=== PATIENT | female | born 1950 | race Caucasian/White ===

== ENCOUNTER → 2018-03-14 00:55 | Outpatient (CLI) | payer MEDICARE, BC, SELFPAY ==
--- NOTE | 2018-03-14 09:39 | DI.REPORT_ITS ---
SYMPTOM/DIAGNOSIS: F/U LEFT THYROID NODULE E04.1 THYROID ULTRASOUND: 03/14 Thyroid ultrasound was performed according to the usual protocol. The right thyroid lobe measures 50 x 13 x 14 mm. The left thyroid lobe measures 39 x 12 x 16 mm The previously noted 11 x 6 x 10 mm in diameter nodule of the left thyroid lobe measured 11 x 6 x 10 mm on the previous examination and measures 14 x 5 x 11 mm on today's examination and is otherwise unchanged in appearance with some internal vascular flow. CONCLUSION: Slight interval growth in solid left thyroid lobe inferior pole mass in comparison with examination of 07/12/17.
== END ==
LOC: DI 01-25 10:23
PROVIDERS: PCP Physician Assistant Medical; Visit Provider Otolaryngology
DX: E04.1 Nontoxic single thyroid nodule (principal)
CPT/HCPCS: 76536

== ENCOUNTER 2018-06-05 10:18 | Outpatient (REF) | payer MEDICARE, BC, SELFPAY ==
[2018-06-05 21:12] LABS: Cholesterol 225 mg/dL (50-200); Glucose 86 mg/dL (70-100); HDL Cholesterol 67 mg/dL (40-60); LDL CHOLESTEROL 152 mg/dL (<100); TSH 1.85 uIU/mL (0.358-3.74); Triglyceride 67 mg/dL (30-150)
== END 2018-06-05 10:38 ==
LOC: NCHCN 10:18
PROVIDERS: PCP Physician Assistant Medical; Visit Provider Nurse Practitioner Family
DX: E04.1 Nontoxic single thyroid nodule (principal); E78.89 Other lipoprotein metabolism disorders; R43.9 Unspecified disturbances of smell and taste
CPT/HCPCS: 80061; 82947; 83721; 84443

== ENCOUNTER 2018-09-23 07:39 | Day surgery (SDC) | payer MEDICARE, BC, SELFPAY ==
--- NOTE | 2018-09-22 19:29 | POEE_ITS ---
History of Present Illness Chief Complaint: Progressive decreased vision, left eye Narrative: The patient is a 68-year old lady with history of progressive decreased vision in both eyes at both distance and near. She notes significant difficulty with driving at night due to glare from headlights, left eye worse t hernandes right. On examination she was noted to have significant bilateral cortical cataracts with milder nuclear cataracts with corrected visual acuity of 20/30 OD and 20/40 OS. She has significant glare disability. The option of cataract surgery was offered to the patient and she wished to proceed. NOTE: The Chief Complaint, HPI, Past Medical History, Past Surgical History, Family History, Social History, Medications, and complete Ophthalmic Exam with detailed Assessment and Plan have already been documented in the patient's outpatient ophthalmic record and are not covered again in detail here. [facility] Medical History Cortical cataract of left eye (Acute) Nuclear sclerotic cataract of left eye (Acute) Posterior subcapsular age-related cataract of left eye (Acute) Social History Smoking and Tabacco status: Never Meds Home Medications Medication Instructions Recorded Confirmed Type epinephrine [EpiPen 2-Douglas] 0.3 mg IM ONCE 09/17/18 09/17/18 History Allergies Allergy/AdvReac Type Severity Reaction Status Date / Time sunflower seed Allergy Severe Swelling/Edema, Verified 09/17/18 12:52 rash latex AdvReac Intermediate Irritation Verified 09/17/18 12:51 scopolamine AdvReac Mild Nausea, Verified 09/17/18 12:51 dizzieness, migraine Sulfa (Sulfonamide AdvReac Mild Skin Rash Verified 09/17/18 12:51 Antibiotics) Exam OCULAR EXAM:: Most recent ocular examination is significant for corrected visual acuity of 20/30 OD, 20/40 OS. Ocular pressure is 14 OD, 16 OS. Extraocular motility is normal. Pupils equal, round, and reactive without afferent pupillary defect pupils dilating to 7 mm OU. 1+ nuclear cataract with 1-2+ diffuse cortical haze OU. 1+ posterior subcapsular cataract is present OS as well. Dilated funduscopic examination shows disc cupping of 0.3 OD 0.4 OS with good color. The optic nerves have good perfusion and normal color. The retinal vasculature is normal without significant tortuosity or abnormality. The maculas are normal in appearance with normal contour and foveal reflex appropriate for age. The peripheral retina and vitreous are normal. BRIGHTNESS ACUITY TESTING (BAT):: Brightness acuity testing of the left eye off is 20/40. Low is 20/50. Medium is 20/60. High is 20/80. Assessment and Plan (1) Posterior subcapsular age-related cataract of left eye: Current visit: No Status: Acute Assessment: Visually significant cataract, left eye. Plan: Cataract extraction with intraocular lens implantation, left eye (2) Nuclear sclerotic cataract of left eye: Current visit: No Status: Acute Assessment: Visually significant cataract, left eye. Plan: Cataract extraction with intraocular lens implantation, left eye (3) Cortical cataract of left eye: Current visit: No Status: Acute Assessment: Visually significant cataract, left eye. Plan: Cataract extraction with intraocular lens implantation, left eye Note: NOTE:: The details of the planned surgery, including the risks, indications,limitations,expectations,outcome and possible complications were explained to the patient. The patient understands the complications including, but not limited to: infection, hemorrhage, posterior dislocation of the lens or nuclear fragments which may require the intervention of a vitreoretinal surgeon, possible loss of the eye, or from anesthetic complications. The patient has been made aware of the option of not having surgery, that vision following surgery may not be equal to that prior to surgery, and that the planned surgery may not achieve the intended results. Following this discussion, which the patient appeared to understand, the patient wishes to proceed with cataract surgery with lens implantation of the affected eye to improve and maximize vision.
[2018-09-23 07:54] VITALS: BP 174/91; PULSE 107; RESP 18; TEMP 36.5; O2SAT 97
[2018-09-23] MEDS: Tropicam./Phenyleph. (1/2.5%) 5 ML BTL OS ×3 (08:03→08:16)
[2018-09-23] MEDS: Tetracaine 0.5% 4 ML BTL OS ×4 (08:03→09:08)
--- NOTE | 2018-09-23 08:58 | W.PM.DSUDISC ---
Discharge Plan Disposition Patient Disposition: HOME Condition: Good Discharge Details Attending Provider: Natalio Mckinnon Primary Care Provider: Radha Mejia Home Meds and New Rx's Prescriptions: No Action epinephrine [EpiPen 2-Douglas] 0.3 mg/0.3 mL Auto-Injector 0.3 mg IM ONCE RF: 0 Discharge Instructions Stand Alone Forms: Post-op Topical Cataract, Reebka Rome (DSU) Discharge Orders Discharge Orders: Discharge Order (Routine); Ordered 09/23/18 Ordered By: Natalio Mckinnon DS: Diagnosis Discharge Diagnosis (1) Status post cataract extraction and insertion of intraocular lens of left eye: Status: Chronic
[2018-09-23] MEDS: Povidone-Iodine Ophth 30 ML BTL ×2 (09:08→09:31)
[2018-09-23] MEDS: Lidocaine 2% Jelly 6 ML SYR (09:08)
[2018-09-23] MEDS: Lidocaine 1% Pres-Free 5 ML VIAL (09:12)
[2018-09-23] MEDS: Balanced Salt Soln.-PLUS 500 ML BAG (09:12)
--- NOTE | 2018-09-23 09:41 | ROE_ITS ---
Date of service: 09/23/18 Time of Service: 09:40 Operative Note PRE-OP DIAGNOSIS: Cataract, left eye POST-OP DIAGNOSIS: same PROCEDURE: Cataract extraction using phacoemulsification with intraocular lens implant, left eye SURGEON: Natalio Mckinnon ANESTHESIA: MAC and local (sub-tenon's anesthetic infiltration) PATHOLOGY: none sent COMPLICATIONS: None Patient was transported to: same day Patient's condition: stable Implants: [employer] / [employer] Tecnis [id number] Indications: Progressive decreased vision due to cataract, left eye Procedure Description: CATARACT SURGERY OPERATIVE REPORT PREOPERATIVE DIAGNOSIS: Nuclear/cortical/posterior subcapsular cataract, left eye, symptom POSTOPERATIVE DIAGNOSIS: Same OPERATION: Cataract extraction using phacoemulsification with posterior chamber intraocular lens implant, left eye. IOL: IOL Grades 1 Thru 6 Home Teacher/Model: [employer] / KARSTEN Tecnis [id number] IOL Power: + 14.50 diopters IOL Serial Number: [id number] Optic Diameter: 6.0mm Haptic/Overall Diameter: 13.0mm PHACO INFO: [employer] Vision System with OZil and Active Fluidics Cumulative Dispersed Energy (CDE): 9.64 seconds SURGEON: Natalio Mckinnon MD, NANCY ANESTHESIA: Monitored Anesthesia Care (MAC), with local sub-tenon's anesthetic infiltration COMPLICATIONS: None SPECIMENS: None INDICATIONS FOR PROCEDURE: The patient is a 68-year-old lady with history of corneal epithelial basement membrane dystrophy who has developed nuclear cortical and posterior subcapsular cataract in the left eye with best corrected vision of 20/40. She is significantly symptomatic that she desires cataract surgery and attempt to improve and maximize her vision. PROCEDURE: The correct surgical eye was identified and marked as the left eye and the pupil was dilated in the preoperative area using mydriatics and cycloplegics. The dilated pupil size was 6.5 mm. Oral sedation was administered in the form of an Imprimis MKO Melt (midazolam 3mg/ketamine 25mg/ondansetron 2mg). The patient was brought to the operating room where cardiopulmonary monitoring was instituted and surgical time-out was performed, confirming the correct operative eye and IOL power. Topical anesthesia was administered and ophthalmic povidone-iodine 5% was instilled into the conjunctival fornices. Lidocaine gel was applied to the cornea and the mer-ocular area was prepped with Betadine 10% solution and draped in the usual sterile fashion for intraocular surgery, including an aperture drape. A Tegaderm transparent film dressing was cut in half and used to cover the lashes and lid margins. Care was taken to sequester the lashes and lid margins under the Tegaderm dressing. A lid speculum was placed between the lids of the operative eye and the Jesus Manuel-Mis operating microscope was maneuvered into position. Irene scissors were then used to make a conjunctival buttonhole approximately 6mm posterior to the limbus in the inferonasal quadrant. Blunt dissection was carried out to expose bare sclera, and a blunt-tipped sub-tenon?s anesthesia cannula was introduced and passed posteriorly along the globe where non- preserved plain lidocaine was injected into posterior sub-Tenon?s space. A sideport knife was used to make a paracentesis port superior/superiortemporal, and the anterior chamber was filled with Healon GV. A 2.4mm keratome knife was used to create a half-thickness groove at the limbus and then to construct a three-plane near-clear corneal tunnel extending 2.0mm into clear cornea in the temporal position. . A flap was raised on the anterior capsule and capsulorhexis forceps were used to complete a continuous curvilinear capsulorhexis of 5.0 mm. Balanced salt solution was then used to perform cortical cleaving hydrodissection and nuclear hydrodelineation until the lens could be freely rotated within the capsular bag. The lens nucleus was then disassembled and removed within the capsular bag and iris plane using phacoemulsification. Residual cortical material was removed using the 45-degree angled silicone I/A tip with 0.3mm port. The posterior capsule was carefully polished to remove as much residual lens epithelial cells as safely possible. The capsular bag was then inflated and the anterior chamber deepened with viscoelastic. The lens implant described above was inserted into the capsular bag using the KARSTEN [place] Injector. A Kuglen hook was used to dial the IOL into position. Residual viscoelastic was then removed first from posterior to the IOL, then from the anterior chamber using the I/A handpiece. The lens implant was noted to center nicely within the capsular bag. The incisions were stromally hydrated, and the anterior chamber was reformed using BSS. Then 0.4cc of moxifloxacin 1.5mg/ml were injected into the capsular bag and anterior chamber. The incisions were checked with a Weck spear and found to be secure. Several drops of ophthalmic povidone-iodine 5% were then applied to the eye followed by two drops of Imprimis combination moxifloxacin/dexamethasone solution. The drapes were removed and a clear plastic protective eye shield was placed over the eye. The patient was then returned to [facility] Day Surgery in stable condition.
[2018-09-23 10:22] VITALS: BP 105/71; PULSE 71; RESP 14; TEMP 35.7; O2SAT 95
== END 2018-09-23 10:45 | disposition home or self-care (01) ==
PROVIDERS: PCP Nurse Practitioner Family; Visit Provider Ophthalmology
PROC: (CPT 66984; principal; 2018-09-23 10:00)
DX: H25.812 Combined forms of age-related cataract, left eye (principal)
CPT/HCPCS: 66984; V2632

== ENCOUNTER 2018-10-07 08:29 | Day surgery (SDC) | payer MEDICARE, BC, SELFPAY ==
--- NOTE | 2018-10-06 18:49 | W.PIPPEYE ---
History of Present Illness Chief Complaint: Progressive decreased vision, right eye Narrative: The patient is a 68-year-old lady with history of progressive decreased vision in both eyes at both distance and near. She has significant difficulty like seeing beltran tags in stores and driving at night. She feels it is affecting her entire life. On examination she was noted to have bilateral nuclear and diffuse cortical cataract with posterior subcapsular cataract of the left eye as well. She underwent cataract surgery in the left eye on 09/23/2018. Postoperatively she has regained best corrected vision of 20/25 in the left eye. She now presents for cataract surgery in the right eye. NOTE: The Chief Complaint, HPI, Past Medical History, Past Surgical History, Family History, Social History, Medications, and complete Ophthalmic Exam with detailed Assessment and Plan have already been documented in the patient's outpatient ophthalmic record and are not covered again in detail here. [facility] Medical History Cortical cataract of right eye (Acute) Nuclear sclerotic cataract of right eye (Acute) Corneal epithelial dystrophy (Chronic) Cortical cataract of left eye (Resolved) Nuclear sclerotic cataract of left eye (Resolved) Posterior subcapsular age-related cataract of left eye (Resolved) Surgical History Status post cataract extraction and insertion of intraocular lens of left eye (Chronic 09/23/18) Social History Smoking/Tobacco Use Status: Never Drug use: Never Meds Home Medications Medication Instructions Recorded Confirmed Type epinephrine [EpiPen 2-Douglas] 0.3 mg IM ONCE 09/17/18 09/17/18 History Allergies Allergy/AdvReac Type Severity Reaction Status Date / Time sunflower seed Allergy Severe Swelling/Edema, Verified 09/23/18 07:50 rash latex AdvReac Intermediate Irritation Verified 09/23/18 07:50 scopolamine AdvReac Mild Nausea, Verified 09/23/18 07:50 dizzieness, migraine Sulfa (Sulfonamide AdvReac Mild Skin Rash Verified 09/23/18 07:50 Antibiotics) Exam OCULAR EXAM:: Most recent ocular examination is significant for best corrected vision of 20/30 right eye, 20/25 left eye. Intraocular pressure is 14 OD, 16 OS. Extraocular motility is normal. Slit-lamp examination is significant for anterior basement membrane dystrophy OU. Pupils dilate to 7 mm OU. 1+ nuclear with 1-2+ diffuse cortical cataract OD. In the left eye there is a well-positioned PCIOL with clear capsule. Dilated funduscopic examination reveals disc cupping of 0.3 OD 0.4 OS with good color. The optic nerves have good perfusion and normal color. The retinal vasculature is normal without significant tortuosity or abnormality. The maculas are normal in appearance with normal contour and foveal reflex appropriate for age. The peripheral retina and vitreous are normal. BRIGHTNESS ACUITY TESTING (BAT):: Brightness acuity testing of the right eye off is 20/30. Low, medium, and high is 20/30. Assessment and Plan (1) Nuclear sclerotic cataract of right eye: Current visit: No Status: Acute Assessment: Visually significant cataract, right eye. Plan: Cataract extraction with intraocular lens implantation, right eye (2) Cortical cataract of right eye: Current visit: No Status: Acute Assessment: Visually significant cataract, right eye. Plan: Cataract extraction with intraocular lens implantation, right eye Note: NOTE:: The details of the planned surgery, including the risks, indications,limitations,expectations,outcome and possible complications were explained to the patient. The patient understands the complications including, but not limited to: infection, hemorrhage, posterior dislocation of the lens or nuclear fragments which may require the intervention of a vitreoretinal surgeon, possible loss of the eye, or from anesthetic complications. The patient has been made aware of the option of not having surgery, that vision following surgery may not be equal to that prior to surgery, and that the planned surgery may not achieve the intended results. Following this discussion, which the patient appeared to understand, the patient wishes to proceed with cataract surgery with lens implantation of the affected eye to improve and maximize vision.
--- NOTE | 2018-10-06 18:53 | POEE_ITS ---
History of Present Illness Chief Complaint: Progressive decreased vision, right eye Narrative: The patient is a 68-year-old lady with history of progressive decreased vision in both eyes at both distance and near. She has significant difficulty like seeing beltran tags in stores and driving at night. She feels it is affecting her entire life. On examination she was noted to have bilateral nuclear and diffuse cortical cataract with posterior subcapsular cataract of the left eye as well. She underwent cataract surgery in the left eye on 09/23/2018. Postoperatively she has regained best corrected vision of 20/25 in the left eye. She now presents for cataract surgery in the right eye. NOTE: The Chief Complaint, HPI, Past Medical History, Past Surgical History, Family History, Social History, Medications, and complete Ophthalmic Exam with detailed Assessment and Plan have already been documented in the patient's outpatient ophthalmic record and are not covered again in detail here. [facility] Medical History Cortical cataract of right eye (Acute) Nuclear sclerotic cataract of right eye (Acute) Corneal epithelial dystrophy (Chronic) Cortical cataract of left eye (Resolved) Nuclear sclerotic cataract of left eye (Resolved) Posterior subcapsular age-related cataract of left eye (Resolved) Surgical History Status post cataract extraction and insertion of intraocular lens of left eye (Chronic 09/23/18) Social History Smoking/Tobacco Use Status: Never Drug use: Never Meds Home Medications Medication Instructions Recorded Confirmed Type epinephrine [EpiPen 2-Douglas] 0.3 mg IM ONCE 09/17/18 09/17/18 History Allergies Allergy/AdvReac Type Severity Reaction Status Date / Time sunflower seed Allergy Severe Swelling/Edema, Verified 09/23/18 07:50 rash latex AdvReac Intermediate Irritation Verified 09/23/18 07:50 scopolamine AdvReac Mild Nausea, Verified 09/23/18 07:50 dizzieness, migraine Sulfa (Sulfonamide AdvReac Mild Skin Rash Verified 09/23/18 07:50 Antibiotics) Exam OCULAR EXAM:: Most recent ocular examination is significant for best corrected vision of 20/30 right eye, 20/25 left eye. Intraocular pressure is 14 OD, 16 OS. Extraocular motility is normal. Slit-lamp examination is significant for anterior basement membrane dystrophy OU. Pupils dilate to 7 mm OU. 1+ nuclear with 1-2+ diffuse cortical cataract OD. In the left eye there is a well- positioned PCIOL with clear capsule. Dilated funduscopic examination reveals disc cupping of 0.3 OD 0.4 OS with good color. The optic nerves have good p erfusion and normal color. The retinal vasculature is normal without significant tortuosity or abnormality. The maculas are normal in appearance with normal contour and foveal reflex appropriate for age. The peripheral retina and vitreous are normal. BRIGHTNESS ACUITY TESTING (BAT):: Brightness acuity testing of the right eye off is 20/30. Low, medium, and high is 20/30. Assessment and Plan (1) Nuclear sclerotic cataract of right eye: Current visit: No Status: Acute Assessment: Visually significant cataract, right eye. Plan: Cataract extraction with intraocular lens implantation, right eye (2) Cortical cataract of right eye: Current visit: No Status: Acute Assessment: Visually significant cataract, right eye. Plan: Cataract extraction with intraocular lens implantation, right eye Note: NOTE:: The details of the planned surgery, including the risks, indications,limitations,expectations,outcome and possible complications were explained to the patient. The patient understands the complications including, but not limited to: infection, hemorrhage, posterior dislocation of the lens or nuclear fragments which may require the intervention of a vitreoretinal surgeon, possible loss of the eye, or from anesthetic complications. The patient has been made aware of the option of not having surgery, that vision following surgery may not be equal to that prior to surgery, and that the planned surgery may not achieve the intended results. Following this discussion, which the patient appeared to understand, the patient wishes to proceed with cataract surgery with lens implantation of the affected eye to improve and maximize vision.
--- NOTE | 2018-10-06 19:21 | W.PM.DSUDISC ---
Discharge Plan Disposition Patient Disposition: HOME Condition: Stable Discharge Details Attending Provider: Natalio Mckinnon Primary Care Provider: Radha Mejia Home Meds and New Rx's Prescriptions: No Action epinephrine [EpiPen 2-Douglas] 0.3 mg/0.3 mL Auto-Injector 0.3 mg IM ONCE RF: 0 Discharge Instructions Stand Alone Forms: Post-op Topical Cataract, Rebeka Hurtadoey (DSU) Discharge Orders Discharge Orders: Discharge Order (Routine); Ordered 10/07/18 Ordered By: Natalio Mckinnon DS: Diagnosis Discharge Diagnosis (1) Nuclear sclerotic cataract of right eye: Status: Resolved (2) Cortical cataract of right eye: Status: Resolved (3) Status post cataract extraction and insertion of intraocular lens of right eye: Status: Chronic
[2018-10-07 08:42] VITALS: BP 161/97; PULSE 81; RESP 18; TEMP 36.5; O2SAT 97
[2018-10-07] MEDS: Tropicam./Phenyleph. (1/2.5%) 5 ML BTL OD ×3 (08:56→09:05)
[2018-10-07] MEDS: Tetracaine 0.5% 4 ML BTL OD ×4 (08:56→10:29)
[2018-10-07] MEDS: Lidocaine 2% Jelly 6 ML SYR (10:29)
[2018-10-07] MEDS: Povidone-Iodine Ophth 30 ML BTL (10:29)
[2018-10-07] MEDS: Lidocaine 1% Pres-Free 5 ML VIAL (10:33)
[2018-10-07] MEDS: Balanced Salt Soln.-PLUS 500 ML BAG (10:35)
--- NOTE | 2018-10-07 11:02 | ROE_ITS ---
Date of service: 10/07/18 Time of Service: 11:00 Operative Note PRE-OP DIAGNOSIS: Cataract, right eye PROCEDURE: Cataract extraction using phacoemulsification with intraocular lens implant, right eye SURGEON: Natalio Mckinnon ANESTHESIA: MAC and local (sub-tenon's anesthetic infiltration) ESTIMATED BLOOD LOSS: 0 PATHOLOGY: none sent COMPLICATIONS: None Patient was transported to: same day Patient's condition: stable Implants: [employer] / [employer] Tecnis ZCB00 intraocular lens Indications: Progressive decreased vision due to cataract, right eye Procedure Description: CATARACT SURGERY OPERATIVE REPORT PREOPERATIVE DIAGNOSIS: Nuclear/cortical cataract, right eye POSTOPERATIVE DIAGNOSIS: Same OPERATION: Cataract extraction using phacoemulsification with posterior chamber intraocular lens implant, right eye. IOL: IOL Wind [employer] Technician/Model: [employer] / KARSTEN Tecnis ZCB00 IOL Power: + 17.50 diopters IOL Serial Number: [id number] Optic Diameter: 6.0mm Haptic/Overall Diameter: 13.0mm PHACO INFO: [employer] Vision System with OZil and Active Fluidics Cumulative Dispersed Energy (CDE): 7.9 seconds SURGEON: Natalio Mckinnon MD, NANCY ANESTHESIA: Monitored Anesthesia Care (MAC), with local sub-tenon's anesthetic infiltration COMPLICATIONS: None SPECIMENS: None INDICATIONS FOR PROCEDURE: The patient is a 68-year-old lady with history of anterior basement membrane corneal dystrophy. She has developed significant nuclear and cortical cataracts in both eyes and desires cataract surgery and attempt to improve and maximize her vision. She has already undergone cataract surgery in her left eye on 09/23/2018. She now presents for cataract surgery in the right eye per PROCEDURE: The correct surgical eye was identified and marked as the right eye and the pupil was dilated in the preoperative area using mydriatics and cycloplegics. The dilated pupil size was 7.0 mm. Oral sedation was administered in the form of an Imprimis MKO Melt (midazolam 3mg/ketamine 25mg/ondansetron 2mg). The patient was brought to the operating room where cardiopulmonary monitoring was instituted and surgical time-out was performed, confirming the correct operative eye and IOL power. Topical anesthesia was administered and ophthalmic povidone-iodine 5% was instilled into the conjunctival fornices. Lidocaine gel was applied to the cornea and the mer-ocular area was prepped with Betadine 10% solution and draped in the usual sterile fashion for intraocular surgery, including an aperture drape. A Tegaderm transparent film dressing was cut in half and used to cover the lashes and lid margins. Care was taken to sequester the lashes and lid margins under the Tegaderm dressing. A lid speculum was placed between the lids of the operative eye and the Jesus Manuel-Mis operating microscope was maneuvered into position. Irene scissors were then used to make a conjunctival buttonhole approximately 6mm posterior to the limbus in the inferonasal quadrant. Blunt dissection was carried out to expose bare sclera, and a blunt-tipped sub-tenon?s anesthesia cannula was introduced and passed posteriorly along the globe where non- preserved plain lidocaine was injected into posterior sub-Tenon?s space. A sideport knife was used to make a paracentesis port inferiortemporally, and the anterior chamber was filled with Healon GV. A 2.4mm keratome knife was used to create a half-thickness groove at the limbus and then to construct a three-plane near-clear corneal tunnel extending 2.0mm into clear cornea in the superiortemporal position. . A flap was raised on the anterior capsule and capsulorhexis forceps were used to complete a continuous curvilinear capsulorhexis of 5.0 mm. Balanced salt solution was then used to perform cortical cleaving hydrodissection and nuclear hydrodelineation until the lens could be freely rotated within the capsular bag. The lens nucleus was then disassembled and removed within the capsular bag and iris plane using phacoemulsification. Residual cortical material was removed using the I/A handpiece. The posterior capsule was carefully polished to remove as much residual lens epithelial cells as safely possible. The capsular bag was then inflated and the anterior chamber deepened with viscoelastic. The lens implant described above was inserted into the capsular bag using the KARSTEN [place] Injector. A Kuglen hook was used to dial the IOL into position. Residual viscoelastic was then removed first from posterior to the IOL, then from the anterior chamber using the I/A handpiece. The lens implant was noted to center nicely within the capsular bag. The incisions were stromally hydrated, and the anterior chamber was reformed using BSS. Then 0.4cc of moxifloxacin 1.5mg/ml were injected into the capsular bag and anterior chamber. The incisions were checked with a Weck spear and found to be secure. Several drops of ophthalmic povidone-iodine 5% were then applied to the eye followed by two drops of Imprimis combination moxifloxacin/dexamethasone solution. The drapes were removed and a clear plastic protective eye shield was placed over the eye. The patient was then returned to [facility] Day Surgery in stable condition.
[2018-10-07 11:22] VITALS: BP 124/82; PULSE 79; RESP 16; TEMP 36.8; O2SAT 94
[2018-10-07 11:37] VITALS: BP 124/82; PULSE 79; RESP 16; TEMP 36.8; O2SAT 94
== END 2018-10-07 11:35 | disposition home or self-care (01) ==
LOC: SUR 08:30
PROVIDERS: PCP Nurse Practitioner Family; Visit Provider Ophthalmology
PROC: (CPT 66984; principal; 2018-10-07 11:15)
DX: H25.811 Combined forms of age-related cataract, right eye (principal); Z98.42 Cataract extraction status, left eye; Z96.1 Presence of intraocular lens
CPT/HCPCS: 66984; V2632

== ENCOUNTER 2019-04-10 11:19 | Inpatient (IN) | payer MEDICARE, BC, SELFPAY ==
[2019-04-10 11:22] VITALS: BP 191/92; PULSE 86; RESP 16; TEMP 37.2; O2SAT 98
--- NOTE | 2019-04-10 11:47 | DI.CT_ITS ---
EXAM: CT RENAL COLIC WO CLINICAL HISTORY: Left flank pain. COMPARISON: No exams were available for comparison FINDINGS: CT examination of the abdomen and pelvis was performed without contrast administration. Images obtai kishor through the lung bases are unremarkable. Visualized portions of the liver and spleen are unremar kable. Pancreas appears normal. Gallbladder and bile ducts are CT normal. Abdominal aorta is of no rmal diameter. Small fat containing umbilical hernia noted, no other hernia seen. No abdominal or p elvic adenopathy. Cutlery Grinder structures appear unremarkable for age. Normal appearance of the appendix. N o evidence of diverticulitis. Adrenals are unremarkable in appearance bilaterally. There are multiple bilateral nonobstructing kunal al calculi. There is left hydronephrosis and hydroureter to the level of the distal ureter where the re is an obstructing 4 mm calculus a few cm above the UVJ. Urinary bladder unremarkable. IMPRESSION: 4 mm obstructing left ureteral calculus in the distal ureter as described above.
--- NOTE | 2019-04-10 11:48 | ED.GENADUL_ITS ---
Discharge Plan Disposition Patient Disposition: [facility] INPATIENT Condition: Stable Discharge Details Chief Complaint: FlankPain Clinical Impression: Calculus of left ureter Primary Care Provider: Radha Mejia ED Provider: Chavez Mccann Home Meds and New Rx's Prescriptions: No Action epinephrine [EpiPen 2-Douglas] 0.3 mg/0.3 mL Auto-Injector 0.3 mg IM ONCE RF: 0 Medical Decision Making 68-year-old female presents from home with hours of colicky left flank pain that radiates to the abdomen. Similar to previous renal colic. No fever. She did vomit once at home. She arrives with slight hypertension, afebrile, minimal tenderness in left upper quadrant. Differential diagnosis would include colitis, bowel obstruction, as well as recurrent left ureteral colic. Patient IV access established, referred for laboratory testing, urinalysis, given parenteral analgesic and referred for CT images. Patient does have evidence of urinary tract infection with positive white blood cells and leuk esterase. Minimal anion gap of 12, elevated white blood cell count of 12. CT with left 4 mm obstructing calculus. Given her urinary tract infection, case discussed with Dr. Lilly and patient will be admitted for parenteral antibiotics and observation. HPI General Mode of arrival: ambulatory . Date/Time Provider Initiated Documentation: 04/10/19 11:20 . Limitations to Documentation: no limitations . Information obtained by: patient . History of Present Illness 68 year old F presents to the emergency department with the chief complaint of Colicky left flank pain 4 hours, described as moderate, Quality is described as stabbing, and is localized to the abdomen and left. Patient abdomen and flank. Patient started experiencing this hour(s) and it has been intermittent. No relieving factors improve symptom(s), No exacerbating factors reported . Patient notes denies fever/chills. Patient did receive the following tr eatments prior to arrival, NSAID Related Data Home Medications Medication Instructions Recorded Confirmed epinephrine [EpiPen 2-Douglas] 0.3 mg IM ONCE 09/17/18 04/10/19 Allergies Allergy/AdvReac Type Severity Reaction Status Date / Time sunflower seed Allergy Severe Swelling/Edema, Verified 04/10/19 11:26 rash latex AdvReac Intermediate Irritation Verified 04/10/19 11:26 scopolamine AdvReac Mild Nausea, Verified 04/10/19 11:26 dizzieness, migraine Sulfa (Sulfonamide AdvReac Mild Skin Rash Verified 04/10/19 11:26 Antibiotics) General Stated Complaint: FlankPain SHIRLEY: 3 Review of Systems Review of Systems Narrative: No fever or chills. Vomited with pain once this morning. No recent illness or injury. No change to bowel habits. 6 systems reviewed and otherwise negative [facility] Medical History Corneal epithelial dystrophy (Chronic) Cortical cataract of left eye (Resolved) Cortical cataract of right eye (Resolved) Nuclear sclerotic cataract of left eye (Resolved) Nuclear sclerotic cataract of right eye (Resolved) Posterior subcapsular age-related cataract of left eye (Resolved) Surgical History Status post cataract extraction and insertion of intraocular lens of left eye (Chronic 09/23/18) Status post cataract extraction and insertion of intraocular lens of right eye (Chronic) Social History Smoking/Tobacco Use Status: Never Alcohol Intake: current Alcohol Intake frequency: holidays/special occasions only Drug use: Never Substance use type: does not use Do you feel safe at home: Yes Do you feel safe in your relationship?: Yes Exam Narrative Exam Narrative: GEN: awake, alert, oriented 3. Pleasant, well groomed, interactive. HEAD: Normocephalic, atraumatic ENT: Mucous membranes moist, oropharynx unremarkable, External ear exam unremarkable EYES: PERRL, EOMI NECK: Full ROM, no JADE, no menigismus CHEST/RESP: Nontender, clear to auscultation bilateral, no wheeze/rhonchi/rales CARDIOVASCULAR: RRR, no murmur, rub vito. 2+ Rad pulse bilateral ABDOMEN: Soft, minimal left lower quadrant tenderness without rebound, no mass. +Bowel sounds EXT: Full ROM, no edema, no rash Neuro: Grossly normal neurologic exam, conversant, interactive. Psych: Speech fluent, thoughts congruent, affect normal Course Vital Signs Vital signs: Vital Signs Temperature 37.2 C 04/10/19 11:22 Pulse 86 04/10/19 11:22 Respiratory Rate 16 04/10/19 11:22 Blood Pressure 191/92 H 04/10/19 11:22 Pulse Oximetry 98 04/10/19 11:22 Temperature 37.2 C 04/10/19 11:22 Temperature Source Skin 04/10/19 11:22 Pulse 86 04/10/19 11:22 Respiratory Rate 16 04/10/19 11:22 Respiratory Effort Non-Labored 04/10/19 11:25 Blood Pressure 191/92 H 04/10/19 11:22 Blood Pressure Position Sitting 04/10/19 11:22 Pulse Oximetry 98 04/10/19 11:22 Oxygen Delivery Method Room Air 04/10/19 11:22 Oxygen Flow Rate 0 04/10/19 11:22
[2019-04-10] MEDS: Ketorolac 30 MG/ML VIAL IVP (12:25)
[2019-04-10] MEDS: Normal Saline 1,000 ML 150 ML IV (12:30)
[2019-04-10 12:34] LABS: Abs Immature Grans 0.02 k/cumm (0.0-0.09); Absolute Basophil Count 0.02 k/cumm (0.0-0.2); Absolute Eosinophil Count 0.01 k/cumm (0.0-0.7); Absolute Lymphocyte Count 0.81 k/cumm (1.2-3.4); Absolute Monocyte Count 0.21 k/cumm (0.11-0.7); Basophils % 0.2; Eosinophils % 0.1; HCT 42.8 % (36.0-46.0); HGB 14.1 g/dL (12.0-15.5); Immature Grans % 0.2; Lymphocytes % 6.5; Mean Corp. HGB Concentration 32.9 g/dL (32.0-36.0); Mean Corpuscular Volume 87.9 fL (80-95); Mean Platelet Volume 10.6 fL (8.0-11.0); Monocytes % 1.7; Neutrophils % 91.3; Platelet Count 328 x1000/uL (130-400); RBC 4.87 m/cumm (4.00-5.20); RBC Distribution Width 13.8 % (11.7-14.6); White Blood Cell Count 12.39 k/cumm (4.4-10.8)
[2019-04-10 12:42] LABS: Absolute Neutrophil Count 11.31 k/cumm (1.2-6.7)
[2019-04-10 12:45] LABS: Bilirubin Negative (Negative); Blood Large (Negative); Clarity Sl Cloudy (Clear); Glucose Negative (Negative); Ketones 40 mg/dL (Negative); Leukocyte Esterase Trace (Negative); Nitrite Negative (Negative); Specific Gravity 1.025 (1.005-1.025); Urobilinogen 0.2 EU/dL (Up TO 0.2); pH 5.5 (5-8)
[2019-04-10 12:51] LABS: ALT 27 U/L (14-59); AST 30 U/L (15-37); Albumin 4.1 g/dL (3.4-5.0); Alkaline Phosphatase 70 U/L (46-116); Anion Gap 12.6 mmol/L (3-11); BUN 15 mg/dL (7-18); Bilirubin, Total 0.7 mg/dL (0.2-1.0); CO2 23.4 mmol/L (21.0-32.0); CREATININE 0.83 mg/dL (0.55-1.02); Calcium 9.5 mg/dL (8.5-10.1); Chloride 105 mmol/L (98-107); Glucose 101 mg/dL (70-100); Potassium 4.2 mmol/L (3.5-5.1); Sodium 141 mmol/L (136-145); Total Protein 8.1 g/dL (6.4-8.2)
[2019-04-10 13:02] LABS: Bacteria Many HPF (Negative); C & S Indicated? Yes; Casts Negative LPF (Negative); Crystals Negative HPF (Negative); Epithelial Cells Rare HPF (Negative); Mucus Moderate (Negative); RBC >50 (0-2)
[2019-04-10 14:25] VITALS: BP 151/74; PULSE 82; RESP 16; TEMP 37.1; O2SAT 97
[2019-04-10] MEDS: cefTRIAXone 1 GM/50 ML BAG IVPB (14:37)
[2019-04-10 14:47] VITALS: BP 151/74; PULSE 82; RESP 16; TEMP 37.1; O2SAT 97
[2019-04-10 15:13] VITALS: BP 134/78; PULSE 82; RESP 19; TEMP 36.9; O2SAT 97
[2019-04-10] MEDS: Normal Saline 1,000 ML 100 ML IV (15:30)
--- NOTE | 2019-04-10 15:47 | W.PM.HP.N ---
Date of service: 04/10/19 Time of Service: 15:47 Assessment and Plan Assessment and plan (1) Left ureteral stone: Status: Acute Assessment and plan: We will treat her with hydration and analgesia. The biggest thing we need to do, is to monitor her for signs or symptoms of sepsis. Urine culture is already been sent, so we will give her broad-spectrum antibiotics such as ceftriaxone. I have kept her n.p.o. after midnight until we see how she is doing clinically and how her labs look. If she is doing reasonably well, we could probably discharge her with oral antibiotics and analgesics. If we are concerned about sepsis at all, we will make arrangements for a cystoscopy, stent placement and possible ureteroscopy. We will strain the patient's urine in the hopes that we catch a stone fragment. That way we can have the stone analyzed and come up with a more directed recommendation to help prevent future stones. (2) Bilateral kidney stones: Status: Acute (3) UTI (urinary tract infection): Status: Acute History of Present Illness History of Present Illness Chief Complaint: Renal colic Narrative: This is a 68-year-old female who has had renal colic about 10 or 15 years ago. She recalls passing small crystals. She never had the stone analyzed for chemical composition. She has had left-sided flank and abdominal pain in the past 2 days. She has had nausea and vomiting. This prompted her to present to the emergency room. She has not had any fever or chills. She has no dysuria or gross hematuria. This episode of discomfort is different from her previous episode in that she now has some lower abdominal discomfort compared to b back pain alone. She was evaluated in the emergency room and was found to have bilateral nonobstructing kidney stones with a left distal ureteral stone causing some hydronephrosis. Her urine shows some white cells and bacteria. Her serum white blood count is slightly elevated and she has a bit of a left shift. She feels better after receiving hydration and analgesia in the emergency room. We are keeping her here in the hospital to monitor her and make sure that she does not require urgent intervention related to an infection related to her hydronephrosis. Review of Systems Review of Systems Narrative: No fevers or chills No vision change or dysphasia No diabetes or thyroid dysfunction No shortness of breath, cough or hemoptysis No chest pain or palpitations No hepatitis, ulcers, jaundice, diarrhea or constipation No seizures, strokes or peripheral neuropathy No bleeding disorders or anemia No gout PFSH Medical History Corneal epithelial dystrophy (Chronic) Cortical cataract of left eye (Resolved) Cortical cataract of right eye (Resolved) Nuclear sclerotic cataract of left eye (Resolved) Nuclear sclerotic cataract of right eye (Resolved) Posterior subcapsular age-related cataract of left eye (Resolved) Surgical History Status post cataract extraction and insertion of intraocular lens of left eye (Chronic 09/23/18) Status post cataract extraction and insertion of intraocular lens of right eye (Chronic) Social History Smoking/Tobacco Use Status: Never Alcohol Intake: current Alcohol Intake frequency: holidays/special occasions only Drug use: Never Substance use type: does not use Do you feel safe at home: Yes Do you feel safe in your relationship?: Yes Meds Home Medications and Allergies Home Medications Medication Instructions Recorded Confirmed Type epinephrine [EpiPen 2-Douglas] 0.3 mg IM ONCE 09/17/18 04/10/19 History Allergies Allergy/AdvReac Type Severity Reaction Status Date / Time sunflower seed Allergy Severe Swelling/Edema, Verified 04/10/19 11:26 rash latex AdvReac Intermediate Irritation Verified 04/10/19 11:26 scopolamine AdvReac Mild Nausea, Verified 04/10/19 11:26 dizzieness, migraine Sulfa (Sulfonamide AdvReac Mild Skin Rash Verified 04/10/19 11:26 Antibiotics) Exam Narrative Exam Narrative: She is in no current distress. She looks quite comfortable currently. She does not appear septic or toxic. Her vital signs are documented elsewhere. Her chest wall motion is normal. Her lungs are clear. Cardiac exam shows a regular rate and rhythm Her abdomen is soft with no peritoneal signs such as guarding or rebound tenderness. She is awake and alert. I reviewed her CT scan on the PACS system. She does have multiple bilateral stones. There is a left distal ureteral stone with some hydroureter and hydronephrosis above. Results Labs Result diagrams: 04/10/19 12:25 04/10/19 12:25 Labs: Laboratory Results - last 24 hr 04/10/19 04/10/19 04/10/19 12:00 12:25 12:25 WBC 12.39 H RBC 4.87 Hgb 14.1 Hct 42.8 MCV 87.9 MCH 29.0 MCHC 32.9 RDW 13.8 Plt Count 328 MPV 10.6 Immature Gran % 0.2 Neutrophils % 91.3 Lymphocytes % 6.5 Monocytes % 1.7 Eosinophils % 0.1 Basophils % 0.2 Absolute Neutrophils 11.31 H Absolute Lymphocytes 0.81 L Absolute Monocytes 0.21 Absolute Eosinophils 0.01 Absolute Basophils 0.02 Sodium 141 Potassium 4.2 Chloride 105 Carbon Dioxide 23.4 Anion Gap 12.6 H BUN 15 Creatinine 0.83 Estimated GFR/1.73 m2 >= 60.00 Glucose 101 H Calcium 9.5 Total Bilirubin 0.7 AST 30 ALT 27 Alkaline Phosphatase 70 Total Protein 8.1 Albumin 4.1 Urine Color Yellow Urine Clarity Sl cloudy Urine pH 5.5 Ur Specific [place] 1.025 Urine Protein 30 H Urine Ketones 40 H Urine Blood Large H Urine Nitrite Negative Urine Bilirubin Negative Urine Urobilinogen 0.2 Ur Leukocyte Esterase Trace H Urine RBC >50 H Urine WBC 10-20 Ur Epithelial Cells Rare Urine Crystals Negative Urine Bacteria Many Urine Casts Negative Urine Mucus Moderate Ur Culture Indicated? Yes Urine Glucose Negative Last Vital Signs Temp 37.1 C 04/10/19 14:47 Pulse 82 04/10/19 14:47 Resp 16 04/10/19 14:47 BP 151/74 H 04/10/19 14:47 Pulse Ox 97 04/10/19 14:47
[2019-04-10 17:08] VITALS: BP 149/87; PULSE 75; RESP 18; TEMP 37; O2SAT 95
[2019-04-10] MEDS: Docusate Sodium 100 MG CAP PO (19:15)
[2019-04-10 23:42] VITALS: BP 130/73; PULSE 78; RESP 18; TEMP 36.9; O2SAT 95
[2019-04-11] MEDS: Normal Saline 1,000 ML 100 ML IV (01:32)
[2019-04-11 07:11] LABS: Absolute Basophil Count 0.02 k/cumm (0.0-0.2); Absolute Eosinophil Count 0.23 k/cumm (0.0-0.7); Absolute Lymphocyte Count 1.74 k/cumm (1.2-3.4); Absolute Monocyte Count 0.42 k/cumm (0.11-0.7); Absolute Neutrophil Count 3.14 k/cumm (1.2-6.7); Basophils % 0.4; Eosinophils % 4.1; HCT 38.3 % (36.0-46.0); HGB 12.5 g/dL (12.0-15.5); Lymphocytes % 31.4; Mean Corp. HGB Concentration 32.6 g/dL (32.0-36.0); Mean Corpuscular Hemoglobin 29.2 pg (27.0-33.0); Mean Corpuscular Volume 89.5 fL (80-95); Mean Platelet Volume 10.4 fL (8.0-11.0); Monocytes % 7.6; Neutrophils % 56.5; Platelet Count 287 x1000/uL (130-400); RBC 4.28 m/cumm (4.00-5.20); RBC Distribution Width 13.9 % (11.7-14.6); White Blood Cell Count 5.55 k/cumm (4.4-10.8)
[2019-04-11 07:19] LABS: Anion Gap 6.3 mmol/L (3-11); BUN 16 mg/dL (7-18); CO2 25.7 mmol/L (21.0-32.0); Calcium 8.6 mg/dL (8.5-10.1); Chloride 111 mmol/L (98-107); Glucose 86 mg/dL (70-100); Potassium 4.1 mmol/L (3.5-5.1); Sodium 143 mmol/L (136-145)
[2019-04-11 07:20] VITALS: BP 143/80; PULSE 74; RESP 18; TEMP 37; O2SAT 97
[2019-04-11] MEDS: Docusate Sodium 100 MG CAP PO (08:01)
--- NOTE | 2019-04-11 08:35 | PGE_ITS ---
Date of Service Date of service: 04/11/19 Time of Service: 08:35 Assessment and Plan Assessment and plan (1) Left ureteral stone: Status: Acute Assessment and plan: She has done well overnight. I have given her the option of trying to pass her stone at home versus going ahead with ureteroscopy today. Given the size and location of the stone, it has over 50% chance of passing spontaneously in the next month. She is elected to try to pass the stone without surgery. I will discharge her with antibiotics and analgesics. We will set up a follow-up appointment for 1 month but I have asked her to call our office next week with a progress report. If her pain worsens or if she develops fevers or chills, she will call us immediately or present to the emergency room. Subjective Subjective Interval history since last seen: She has felt well overnight with only minimal left-sided pain. She has not had any fever or chills. She has not had any nausea. Exam Narrative Exam Narrative: She looks well. She does not appear septic or toxic. Her vital signs are documented elsewhere Her abdomen is soft with no mass She is awake and alert Her labs from this morning have returned to baseline. Objective Objective Clinical Data: Abnormal lab results 04/10/19 04/10/19 04/10/19 Range/Units 12:00 12:25 12:25 WBC 12.39 H (4.4-10.8) k/cumm Absolute Neutrophils 11.31 H (1.2-6.7) k/cumm Absolute Lymphocytes 0.81 L (1.2-3.4) k/cumm Chloride (98-107) mmol/L Anion Gap 12.6 H (3-11) mmol/L Glucose 101 H (70-100) mg/dL Urine Protein 30 H (Negative) mg/dL Urine Ketones 40 H (Negative) mg/dL Urine Blood Large H (Negative) Ur Leukocyte Esterase Trace H (Negative) Urine RBC >50 H (0-2) 04/11/19 Range/Units 06:58 WBC (4.4-10.8) k/cumm Absolute Neutrophils (1.2-6.7) k/cumm Absolute Lymphocytes (1.2-3.4) k/cumm Chloride 111 H (98-107) mmol/L Anion Gap (3-11) mmol/L Glucose (70-100) mg/dL Urine Protein (Negative) mg/dL Urine Ketones (Negative) mg/dL Urine Blood (Negative) Ur Leukocyte Esterase (Negative) Urine RBC (0-2) Vital Signs Temperature 37.0 C 04/11/19 07:20 Temperature Source Tympanic 04/11/19 07:20 Pulse 74 04/11/19 07:20 Pulse Rhythm Regular 04/11/19 03:50 Respiratory Rate 18 04/11/19 07:20 Respiratory Effort Non-Labored 04/11/19 03:50 Respiratory Depth Normal 04/11/19 03:50 Respiratory Pattern Normal 04/11/19 03:50 Blood Pressure 143/80 H 04/11/19 07:20 Blood Pressure Position Sitting 04/10/19 11:22 Pulse Oximetry 97 04/11/19 07:20 Oxygen Delivery Method Room Air 04/11/19 07:20 Oxygen Flow Rate 0 04/11/19 07:20 Pain Level 0 04/11/19 07:20 Comment 04/11/19 07:20 Intake & Output 04/10/19 04/10/19 04/11/19 11:59 23:59 11:59 Intake Total 1240 / 1240 1000 / 1000 Output Total 200 / 200 400 / 400 Balance 1040 / 1040 600 / 600 Weight 74.843 kg 75.6 kg Intake: IV 1000 / 1000 1000 / 1000 Oral 240 / 240 Output: Urine 200 / 200 400 / 400 Other: Urine Color Yellow Pale Yellow Urine Appearance Clear Comment Strained urine no visible stones. Voiding Methods Toilet Laboratory Results WBC 5.55 k/cumm (4.4-10.8) D 04/11/19 06:58 RBC 4.28 m/cumm (4.00-5.20) 04/11/19 06:58 Hgb 12.5 g/dL (12.0-15.5) 04/11/19 06:58 Hct 38.3 % (36.0-46.0) 04/11/19 06:58 MCV 89.5 fL (80-95) 04/11/19 06:58 MCH 29.2 pg (27.0-33.0) 04/11/19 06:58 MCHC 32.6 g/dL (32.0-36.0) 04/11/19 06:58 RDW 13.9 % (11.7-14.6) 04/11/19 06:58 Plt Count 287 x1000/uL (130-400) 04/11/19 06:58 MPV 10.4 fL (8.0-11.0) 04/11/19 06:58 Immature Gran % 0.0 04/11/19 06:58 Neutrophils % 56.5 04/11/19 06:58 Lymphocytes % 31.4 04/11/19 06:58 Monocytes % 7.6 04/11/19 06:58 Eosinophils % 4.1 04/11/19 06:58 Basophils % 0.4 04/11/19 06:58 Absolute Neutrophils 3.14 k/cumm (1.2-6.7) 04/11/19 06:58 Absolute Lymphocytes 1.74 k/cumm (1.2-3.4) 04/11/19 06:58 Absolute Monocytes 0.42 k/cumm (0.11-0.7) 04/11/19 06:58 Absolute Eosinophils 0.23 k/cumm (0.0-0.7) 04/11/19 06:58 Absolute Basophils 0.02 k/cumm (0.0-0.2) 04/11/19 06:58 Sodium 143 mmol/L (136-145) 04/11/19 06:58 Potassium 4.1 mmol/L (3.5-5.1) 04/11/19 06:58 Chloride 111 mmol/L (98-107) H 04/11/19 06:58 Carbon Dioxide 25.7 mmol/L (21.0-32.0) 04/11/19 06:58 Anion Gap 6.3 mmol/L (3-11) 04/11/19 06:58 BUN 16 mg/dL (7-18) 04/11/19 06:58 Creatinine 0.80 mg/dL (0.55-1.02) 04/11/19 06:58 Estimated GFR/1.73 m2 >= 60.00 (mL/min/1.73m2) 04/11/19 06:58 Glucose 86 mg/dL (70-100) 04/11/19 06:58 Calcium 8.6 mg/dL (8.5-10.1) 04/11/19 06:58 Total Bilirubin 0.7 mg/dL (0.2-1.0) 04/10/19 12:25 AST 30 U/L (15-37) 04/10/19 12:25 ALT 27 U/L (14-59) 04/10/19 12:25 Alkaline Phosphatase 70 U/L (46-116) 04/10/19 12:25 Total Protein 8.1 g/dL (6.4-8.2) 04/10/19 12:25 Albumin 4.1 g/dL (3.4-5.0) 04/10/19 12:25 Urine Color Yellow (Yellow) 04/10/19 12:00 Urine Clarity Sl cloudy (Clear) 04/10/19 12:00 Urine pH 5.5 (5-8) 04/10/19 12:00 Ur Specific [place] 1.025 (1.005-1.025) 04/10/19 12:00 Urine Protein 30 mg/dL (Negative) H 04/10/19 12:00 Urine Ketones 40 mg/dL (Negative) H 04/10/19 12:00 Urine Blood Large (Negative) H 04/10/19 12:00 Urine Nitrite Negative (Negative) 04/10/19 12:00 Urine Bilirubin Negative (Negative) 04/10/19 12:00 Urine Urobilinogen 0.2 EU/dL (Up TO 0.2) 04/10/19 12:00 Ur Leukocyte Esterase Trace (Negative) H 04/10/19 12:00 Urine RBC >50 (0-2) H 04/10/19 12:00 Urine WBC 10-20 HPF (0-5) 04/10/19 12:00 Ur Epithelial Cells Rare HPF (Negative) 04/10/19 12:00 Urine Crystals Negative HPF (Negative) 04/10/19 12:00 Urine Bacteria Many HPF (Negative) 04/10/19 12:00 Urine Casts Negative LPF (Negative) 04/10/19 12:00 Urine Mucus Moderate (Negative) 04/10/19 12:00 Ur Culture Indicated? Yes 04/10/19 12:00 Urine Glucose Negative mg/dL (Negative) 04/10/19 12:00
--- NOTE | 2019-04-11 08:38 | DSE_ITS ---
Date of service: 04/11/19 Time of Service: 08:38 DS: Diagnosis Discharge Diagnosis (1) Left ureteral stone: Status: Acute Discharge Plan Disposition Patient Disposition: HOME Condition: Stable Discharge Details Chief Complaint: FlankPain Clinical Impression: Calculus of left ureter Reason For Visit: URINARY TRACT INFECTION AND LEFT URETERAL CALCULUS Admit Date/Time: 04/10/19 13:34 Admit Provider: Torsten Lilly Attending Provider: Torsten Lilly Primary Care Provider: Radha Mejia ED Provider: Chavez Mccann Hospital Course Hospital Course: The patient was seen in the emergency room for left-sided flank and abdominal pain. She was identified as having a left distal ureteral stone that measured 4 mm. We were concerned because her urinalysis was consistent with a urinary tract infection. We elected to hospitalize her overnight for IV antibiotics and make sure that she did not develop signs or symptoms of sepsis. During the hospitalization, her pain improved. She was afebrile. She did not have any tachycardia or hypotension. Her serum white blood count returned to normal. We gave her the option of ureteroscopy during this hospitalization or discharge to try to pass her stone. She elected to try to pass the stone, so she is being discharged with antibiotics, analgesics and alpha blockers. Home Meds and New Rx's Prescriptions: New ketorolac 10 mg tablet 10 mg PO TID PRN (Reason: pain) 5 Days Qty: 15 RF: 0 ciprofloxacin HCl 250 mg tablet 250 mg PO BID Qty: 6 RF: 0 tamsulosin 0.4 mg capsule 0.4 mg PO DAILY Qty: 14 RF: 0 Continued epinephrine [EpiPen 2-Douglas] 0.3 mg/0.3 mL Auto-Injector 0.3 mg IM ONCE RF: 0 Discharge Instructions Additional Instructions: Follow-up appointment with me in approximately 4 weeks. Asked the patient to call my office next week with a progress report. She should call my office immediately or present to the emergency room if she develops fevers, chills or worsening pain Activity:: Activity as Tolerated Equipment/Supplies:: No Equipment Needed Diet:: As Tolerated Discharge Data Discharge Comment: pt should receive her dose of Ceftriaxone today be DS: Summary Status at Discharge Functional status at discharge: independent ambulation Overall status at discharge: patient is back to baseline Mental Status: mental status grossly normal Speech and Movement: speech and movement normal Mood: congruent mood Affect: normal affect Exam Psych Mental Status: mental status grossly normal Speech and Movement: speech and movement normal Mood: congruent mood Affect: normal affect DS: Data Vitals/I&O Vitals and I&O: Vital Signs Temperature 37.0 C 04/11/19 07:20 Temperature Source Tympanic 04/11/19 07:20 Pulse 74 04/11/19 07:20 Pulse Rhythm Regular 04/11/19 03:50 Respiratory Rate 18 04/11/19 07:20 Respiratory Effort Non-Labored 04/11/19 03:50 Respiratory Depth Normal 04/11/19 03:50 Respiratory Pattern Normal 04/11/19 03:50 Blood Pressure 143/80 H 04/11/19 07:20 Blood Pressure Position Sitting 04/10/19 11:22 Pulse Oximetry 97 04/11/19 07:20 Oxygen Delivery Method Room Air 04/11/19 07:20 Oxygen Flow Rate 0 04/11/19 07:20 Pain Level 0 04/11/19 07:20 Comment 04/11/19 07:20 Intake & Output 04/10/19 04/10/19 04/11/19 11:59 23:59 11:59 Intake Total 1240 / 1240 1000 / 1000 Output Total 200 / 200 400 / 400 Balance 1040 / 1040 600 / 600 Weight 74.843 kg 75.6 kg Intake: IV 1000 / 1000 1000 / 1000 Oral 240 / 240 Output: Urine 200 / 200 400 / 400 Other: Urine Color Yellow Pale Yellow Urine Appearance Clear Comment Strained urine no visible stones. Voiding Methods Toilet Data Completed and Pending Labs on day of discharge: Labs from last 24 hours 04/11/19 04/11/19 04/10/19 06:58 06:58 12:25 WBC 5.55 D 12.39 H RBC 4.28 4.87 Hgb 12.5 14.1 Hct 38.3 42.8 MCV 89.5 87.9 MCH 29.2 29.0 MCHC 32.6 32.9 RDW 13.9 13.8 Plt Count 287 328 MPV 10.4 10.6 Immature Gran % 0.0 0.2 Neutrophils % 56.5 91.3 Lymphocytes % 31.4 6.5 Monocytes % 7.6 1.7 Eosinophils % 4.1 0.1 Basophils % 0.4 0.2 Absolute Neutrophils 3.14 11.31 H Absolute Lymphocytes 1.74 0.81 L Absolute Monocytes 0.42 0.21 Absolute Eosinophils 0.23 0.01 Absolute Basophils 0.02 0.02 Sodium 143 Potassium 4.1 Chloride 111 H Carbon Dioxide 25.7 Anion Gap 6.3 BUN 16 Creatinine 0.80 Estimated GFR/1.73 m2 >= 60.00 Glucose 86 Calcium 8.6 Total Bilirubin AST ALT Alkaline Phosphatase Total Protein Albumin Urine Color Urine Clarity Urine pH Ur Specific [place] Urine Protein Urine Ketones Urine Blood Urine Nitrite Urine Bilirubin Urine Urobilinogen Ur Leukocyte Esterase Urine RBC Urine WBC Ur Epithelial Cells Urine Crystals Urine Bacteria Urine Casts Urine Mucus Ur Culture Indicated? Urine Glucose 04/10/19 04/10/19 12:25 12:00 WBC RBC Hgb Hct MCV MCH MCHC RDW Plt Count MPV Immature Gran % Neutrophils % Lymphocytes % Monocytes % Eosinophils % Basophils % Absolute Neutrophils Absolute Lymphocytes Absolute Monocytes Absolute Eosinophils Absolute Basophils Sodium 141 Potassium 4.2 Chloride 105 Carbon Dioxide 23.4 Anion Gap 12.6 H BUN 15 Creatinine 0.83 Estimated GFR/1.73 m2 >= 60.00 Glucose 101 H Calcium 9.5 Total Bilirubin 0.7 AST 30 ALT 27 Alkaline Phosphatase 70 Total Protein 8.1 Albumin 4.1 Urine Color Yellow Urine Clarity Sl cloudy Urine pH 5.5 Ur Specific [place] 1.025 Urine Protein 30 H Urine Ketones 40 H Urine Blood Large H Urine Nitrite Negative Urine Bilirubin Negative Urine Urobilinogen 0.2 Ur Leukocyte Esterase Trace H Urine RBC >50 H Urine WBC 10-20 Ur Epithelial Cells Rare Urine Crystals Negative Urine Bacteria Many Urine Casts Negative Urine Mucus Moderate Ur Culture Indicated? Yes Urine Glucose Negative 04/10/19 12:00 Urine - Reflex from Urine Culture - Pending Preliminary micro results at discharge 04/10/19 12:00 Urine Culture - Pending Urine - Reflex from [facility] Medical History Bilateral kidney stones (Acute) Corneal epithelial dystrophy (Chronic) Cortical cataract of left eye (Resolved) Cortical cataract of right eye (Resolved) Left ureteral stone (Acute) Nuclear sclerotic cataract of left eye (Resolved) Nuclear sclerotic cataract of right eye (Resolved) Posterior subcapsular age-related cataract of left eye (Resolved) Surgical History Status post cataract extraction and insertion of intraocular lens of left eye (Chronic 09/23/18) Status post cataract extraction and insertion of intraocular lens of right eye (Chronic) Social History Smoking/Tobacco Use Status: Never Alcohol Intake: current Alcohol Intake frequency: holidays/special occasions only Drug use: Never Substance use type: does not use Do you feel safe at home: Yes Do you feel safe in your relationship?: Yes
[2019-04-11] MEDS: cefTRIAXone 1 GM/50 ML BAG IVPB (14:07)
--- NOTE | 2019-04-11 14:48 | CHAPLAIN ---
Cyndy was walking around the room when I visited. She was friendly in greeting me and told me that she found out she doesn't need to have a procedure and so will be discharged later today, and was happy about that. I explained my role and offered support.
--- NOTE | 2019-04-11 18:28 | INITIAL_ITS ---
- If Service Date Differs Date of service: 04/11/19 Time of Service: 18:28 Care Management Initial Assess REASON FOR HOSPITALIZATION:: UTI, Left Ureteral Calculus PAST MEDICAL HISTORY/PAST SURGICAL HISTORY:: Medical History. Corneal epithelial dystrophy (Chronic). Cortical cataract of left eye (Resolved). Cortical cataract of right eye (Resolved). Nuclear sclerotic cataract of left eye (Resolved). Nuclear sclerotic cataract of right eye (Resolved). Posterior subcapsular age-related cataract of left eye (Resolved). Surgical History. Status post cataract extraction and insertion of intraocular lens of left eye (Chronic 09/23/18). Status post cataract extraction and insertion of intraocular lens of right eye (Chronic) PREVIOUS FUNCTIONAL STATUS/SOCIAL/FAMILY SUPPORTS:: Cyndy lives in [place] with her , Bart. 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 She is independent at baseline. CURRENT FUNCTIONAL STATUS:: Cyndy, who likes to be called Arely, was sitting up in her bed during conversation with ROCIO, with her by her side. They were both pleasant and engaged. Arely reported that she will be going home, per her provider, and she is agreeable to the plan. She reported that she was very happy with her care at [facility]. ADVANCE DIRECTIVES:: None on file. Has patient been provided with information about the portal?: Yes Did the patient sign up for the portal?: No CODE STATUS:: Full Code INSURANCE COVERAGE / FINANCIAL ISSUES:: MCR/ BCBS CURRENT HOME/COMMUNITY SERVICES/EQUIPMENT:: No current services or equipment. PRIMARY CARE PHYSICIAN:: Radha Mejia POTENTIAL DISCHARGE NEEDS:: Evaluations for further needs, follow up appointments PATIENT/FAMILY EDUCATION NEEDS:: Review of community based supports, discharge plan, discussion of self care needs including Ask Me Three ANTICIPATED BARRIERS TO DISCHARGE:: None identified at this time. TRANSPORTATION:: Arely's , Bart, will drive her home via private vehicle. PLAN:: Arely will return home with no additional services to try to pass her stone. She will be driven home via private car by her , Bart. Follow up with PCP.
--- NOTE | 2019-04-11 18:36 | PDOC.CMDIS ---
- If Service Date Differs Date of service: 04/11/19 Time of Service: 18:36 LACE Index Scoring Tool - Questions: Length of Stay (in days): 2 Acuity (Admit via E.D.?): Yes E.D. Visits: 1 - Answers: Total Score: 6 Risk of Readmission: Low Risk Care Management Discharge Reason for Hospitalization: UTI, Left Ureteral Calculus Discharge Plan: Arely will return home with no additional services to try to pass her stone. She will be driven home via private car by her , Bart. Follow up with PCP. Patient/Family Education Needs: Review discharge instructions regarding medication and activity levels. Discussion of self care needs including 'Ask Me Three'
== END 2019-04-11 16:45 | disposition home or self-care (01) | DRG 694 ==
LOC: ER 14:18 → MS 15:02
PROVIDERS: Admitting Provider Urology; Emergency Provider Emergency Medicine; PCP Nurse Practitioner Family; Visit Provider Urology
DX: N20.1 Calculus of ureter (principal); N39.0 Urinary tract infection, site not specified; B96.5 Pseudomonas (aeruginosa) (mallei) (pseudomallei) as the cause of diseases classified elsewhere; N20.0 Calculus of kidney
CPT/HCPCS: 36415; 80048; 80053; 87077; 96361; 96374; 99219; 99222; 99231; 99238; 99285; 74176; 81003; 81015; 85025; 87086; 87186; 99284; J0696; J1885

== ENCOUNTER 2019-04-15 22:03 | Emergency (ER) | payer MEDICARE, BC, SELFPAY ==
[2019-04-15 22:07] VITALS: BP 177/90; PULSE 110; RESP 28; TEMP 36.7; O2SAT 100
--- NOTE | 2019-04-15 22:21 | W.ED.GENAD ---
Discharge Plan Disposition Patient Disposition: HOME Condition: Good Discharge Details Chief Complaint: Abd Prob Clinical Impression: Renal colic on left side Primary Care Provider: Radha Mejia ED Provider: Jackson Brownlee [place] Meds and New Rx's Prescriptions: New Hydrocodone/Apap 5/325, 4 Tab [[place] 5/325, 4 Tabs/Btl] 1 tab PO TID PRN (Reason: Pain) Qty: 4 RF: 0 Continued ketorolac 10 mg tablet 10 mg PO TID PRN (Reason: pain) 5 Days Qty: 15 RF: 0 tamsulosin 0.4 mg capsule 0.4 mg PO DAILY Qty: 14 RF: 0 epinephrine [EpiPen 2-Douglas] 0.3 mg/0.3 mL Auto-Injector 0.3 mg IM ONCE RF: 0 Discharge Instructions Instructions: Renal Colic (ED) Additional Instructions: Use the strainer when you are urinating to know if you have passed the stone. Continue your Flomax. Use Toradol as previously prescribed. Use [place] if necessary for uncontrolled pain. Contact Dr. Lilyl tomorrow for follow-up. Return to ED if you develop fever, uncontrolled pain, uncontrolled vomiting. Referrals: Torsten Lilly MD [ [facility] STAFF PHYSICIAN] - Medical Decision Making Patient presenting with recurrent ureteral colic as well as bladder symptoms. She has no CVAT. She has no fever. She is very uncomfortable with resulting elevated vital signs. Her bladder does not feel distended on exam. Bladder scan suggest only about 50 mL's of urine in the bladder. She continues to complain of urgency and need to urinate. IV established and fluids, morphine, Zofran ordered. CBC and chemistry ordered. Will straight cath for urinalysis. Patient much more comfortable after medications. Her CBC shows a normal white count. BMP shows normal renal function. Urinalysis at this point in time is negative for any evidence of infection. Only about 50 cc was obtained on straight cath consistent with bladder scan. Suspect that her stone is most likely at the UVJ at this point giving her bladder spasms and discomfort. She is much better now. She only has Toradol at home for pain. I will give her a prepack of [place] to go home with in case of recurrent pain overnight. She will continue the Flomax. I will have her touch base with Dr. Lilly in the morning. Return to ED for uncontrolled pain, uncontrolled vomiting, fever. Medical Records Medical records reviewed: Yes I reviewed the patient's medical records. Lab Data Lab results reviewed: Yes I reviewed the patient's lab results. HPI General Mode of arrival: ambulatory. Date/Time Provider Initiated Documentation: 04/15/19 22:14. Limitations to Documentation: no limitations. Information obtained by: patient, RN notes reviewed and old records reviewed. HPI Narrative: Patient presents to the emergency department with suprapubic pain, burning, urgency. She was admitted last week for left ureteral stone. There was some concern of infection and she was placed on antibiotics. She was discharged and has finished the ciprofloxacin and for the most part has been doing okay. She has needed to take a couple of doses of the oral Toradol. She has had no further fevers at home. Tonight she developed left lower quadrant and suprapubic pain as described. She took Toradol without relief. She has had nausea but no vomiting. She presents back to ED for on controlled pain and discomfort. Related Data Home Medications Medication Instructions Recorded Confirmed epinephrine [EpiPen 2-Douglas] 0.3 mg IM ONCE 09/17/18 04/15/19 ketorolac 10 mg PO TID PRN 5 Days #15 tab 04/11/19 04/15/19 tamsulosin 0.4 mg PO DAILY #14 cap 04/11/19 04/15/19 HYDROcodone/APAP 5/325, 4 tab 1 tab PO TID PRN #4 tab 04/16/19 [[place] 5/325, 4 tabs/btl] Previous Rx's Medication Instructions Recorded ketorolac 10 mg PO TID PRN 5 Days #15 tab 04/11/19 tamsulosin 0.4 mg PO DAILY #14 cap 04/11/19 HYDROcodone/APAP 5/325, 4 tab 1 tab PO TID PRN #4 tab 04/16/19 [[place] 5/325, 4 tabs/btl] Allergies Allergy/AdvReac Type Severity Reaction Status Date / Time sunflower seed Allergy Severe Swelling/Edema, Verified 04/15/19 22:18 rash latex AdvReac Intermediate Irritation Verified 04/15/19 22:18 scopolamine AdvReac Mild Nausea, Verified 04/15/19 22:18 dizzieness, migraine Sulfa (Sulfonamide AdvReac Mild Skin Rash Verified 04/15/19 22:18 Antibiotics) General Stated Complaint: Abd Prob SHIRLEY: 2 Review of Systems Review of Systems Narrative: As documented in HPI otherwise negative as below. Const: no fever, chills, weakness Resp: no cough, SOB, pleuritic pain CV: no CP, diaphoresis, edema, syncope GI: abdominal pain and nausea; no vomiting, diarrhea Neuro: no headache, numbness, focal weakness, confusion [facility] Medical History Bilateral kidney stones (Acute) Corneal epithelial dystrophy (Chronic) Cortical cataract of left eye (Resolved) Cortical cataract of right eye (Resolved) Left ureteral stone (Acute) Nuclear sclerotic cataract of left eye (Resolved) Nuclear sclerotic cataract of right eye (Resolved) Posterior subcapsular age-related cataract of left eye (Resolved) Surgical History Status post cataract extraction and insertion of intraocular lens of left eye (Chronic 09/23/18) Status post cataract extraction and insertion of intraocular lens of right eye (Chronic) Social History Smoking/Tobacco Use Status: Never Alcohol Intake: current Alcohol Intake frequency: holidays/special occasions only Drug use: Never Substance use type: does not use Do you feel safe at home: Yes Do you feel safe in your relationship?: Yes Exam Narrative Exam Narrative: Vitals: Afebrile. Hypertensive, tachycardic, tachypnea with normal O2 saturation. Const: WDWN female in obvious discomfot. HEENT: NC/AT. Normal facial exam. Eyes: Normal conjunctiva and sclera. Neck: Supple. Trachea midline. Lungs: Normal respiratory effort. Lungs are clear. Cor: RRR without murmur/gallop. Good radial pulses. GI: Soft. NT/ND. No guarding or rebound. Back: No CVAT. Neuro: A+O x 3. CN grossly in tact. Good strength and no focal deficit. Ext: No C/C/E. Skin: Warm and dry without rash. Course Vital Signs Vital signs: Vital Signs Temperature 98.1 F 04/15/19 22:07 Pulse 110 H 04/15/19 22:07 Respiratory Rate 28 H 04/15/19 22:07 Blood Pressure 177/90 H 04/15/19 22:07 Pulse Oximetry 100 04/15/19 22:07 Temperature 98.1 F 04/15/19 22:07 Temperature Source Skin 04/15/19 22:07 Pulse 110 H 04/15/19 22:07 Respiratory Rate 28 H 04/15/19 22:07 Respiratory Effort Non-Labored 04/15/19 22:17 Blood Pressure 177/90 H 04/15/19 22:07 Blood Pressure Position Sitting 04/15/19 22:07 Pulse Oximetry 100 04/15/19 22:07 Oxygen Delivery Method Room Air 04/15/19 22:07 Oxygen Flow Rate 0 04/15/19 22:07 Pain Level 9 04/15/19 22:07
[2019-04-15] MEDS: Ondansetron 4 MG/2 ML VIAL IVP (22:30)
[2019-04-15] MEDS: MORPHine 10 MG/ML VIAL (22:31)
[2019-04-15] MEDS: Lactated Ringers 1,000 ML 125 ML IV (22:31)
[2019-04-15] MEDS: Lidocaine 2% Jelly 6 ML SYR (22:45)
[2019-04-15 22:59] LABS: Abs Immature Grans 0.01 k/cumm (0.0-0.09); Absolute Basophil Count 0.04 k/cumm (0.0-0.2); Absolute Eosinophil Count 0.39 k/cumm (0.0-0.7); Absolute Lymphocyte Count 1.23 k/cumm (1.2-3.4); Absolute Monocyte Count 0.52 k/cumm (0.11-0.7); Absolute Neutrophil Count 6.37 k/cumm (1.2-6.7); Basophils % 0.5; Eosinophils % 4.6; HCT 39.1 % (36.0-46.0); HGB 13.1 g/dL (12.0-15.5); Immature Grans % 0.1; Lymphocytes % 14.4; Mean Corp. HGB Concentration 33.5 g/dL (32.0-36.0); Mean Corpuscular Hemoglobin 29.6 pg (27.0-33.0); Mean Corpuscular Volume 88.3 fL (80-95); Mean Platelet Volume 10.5 fL (8.0-11.0); Monocytes % 6.1; Neutrophils % 74.3; Platelet Count 297 x1000/uL (130-400); RBC 4.43 m/cumm (4.00-5.20); RBC Distribution Width 13.7 % (11.7-14.6); White Blood Cell Count 8.56 k/cumm (4.4-10.8)
[2019-04-15 23:12] LABS: Anion Gap 10.4 mmol/L (3-11); BUN 18 mg/dL (7-18); CO2 24.6 mmol/L (21.0-32.0); CREATININE 0.95 mg/dL (0.55-1.02); Calcium 9.3 mg/dL (8.5-10.1); Chloride 105 mmol/L (98-107); Estimated GFR 58.68 (mL/min/1.73m2); Glucose 114 mg/dL (70-100); Potassium 4.2 mmol/L (3.5-5.1); Sodium 140 mmol/L (136-145)
[2019-04-15 23:13] LABS: Bilirubin Negative (Negative); Blood Moderate (Negative); Clarity Clear (Clear); Glucose Negative (Negative); Ketones Negative (Negative); Leukocyte Esterase Negative (Negative); Nitrite Negative (Negative); Urobilinogen 0.2 EU/dL (Up TO 0.2); pH 5.5 (5-8)
[2019-04-15 23:20] LABS: Bacteria Negative HPF (Negative); C & S Indicated? No; Casts Negative LPF (Negative); Crystals Few Uric Acid HPF (Negative); Epithelial Cells Negative HPF (Negative); Mucus Negative (Negative); RBC 0-2 (0-2); WBC 0-2 HPF (0-5)
[2019-04-15 23:31] VITALS: BP 105/54; PULSE 89; RESP 18; O2SAT 94
[2019-04-16 00:35] VITALS: BP 140/95; PULSE 74; RESP 18; TEMP 36.8; O2SAT 96
== END 2019-04-16 00:35 | disposition home or self-care (01) ==
PROVIDERS: Emergency Provider Emergency Medicine; PCP Nurse Practitioner Family
DX: N23 Unspecified renal colic (principal); Z87.440 Personal history of urinary (tract) infections
CPT/HCPCS: 36415; 51701; 80048; 96361; 96374; 96375; 99284; 81003; 81015; 85025; J2270; J2405

== ENCOUNTER → 2019-05-05 09:32 | Outpatient (BNVA) | payer MEDICARE, BC, SELFPAY | PROVIDERS: PCP Nurse Practitioner Family; Referring Provider Nurse Practitioner Family; Visit Provider Urology | DX: N20.1 Calculus of ureter (principal) | CPT/HCPCS: 99213 ==

== ENCOUNTER 2019-05-07 01:41 | Outpatient (CLI) | payer MEDICARE, BC, SELFPAY ==
--- NOTE | 2019-05-07 12:12 | DI.US_ITS ---
EXAM: US RENAL CLINICAL HISTORY: r/o hydronephrosis N20.1 CALCULUS OF URETER TECHNIQUE: Ultrasound performed using standard protocol. COMPARISON: CT RENAL COLIC WO from 04/10/2019 FINDINGS: The right kidney measures 10.3 cm in length. No hydronephrosis is seen. There is a question of a s tone at the upper pole which appears nonobstructing. This was noted on the previous CT. The left ki dney measures 9.8 cm in length. A 3 x 6 millimeter stone is seen in the mid left kidney. No hydrone phrosis is seen. The prevoid bladder volume measured 251 cc. The postvoid residual is 5 cc. Both u reteral jets were visualized. IMPRESSION: Bilateral nonobstructing renal calculi. No evidence of hydronephrosis.
== END 2019-05-07 02:01 ==
PROVIDERS: PCP Nurse Practitioner Family; Visit Provider Urology
DX: N20.0 Calculus of kidney (principal)
CPT/HCPCS: 76770

== ENCOUNTER → 2019-06-03 14:31 | Outpatient (BNVA) | payer MEDICARE, BC, SELFPAY | PROVIDERS: PCP Nurse Practitioner Family; Referring Provider Nurse Practitioner Family; Visit Provider Urology | DX: N20.0 Calculus of kidney (principal) | CPT/HCPCS: 99213 ==

== ENCOUNTER 2019-06-06 11:45 | Outpatient (REF) | payer MEDICARE, BC, SELFPAY ==
[2019-06-06 15:16] LABS: Creatinine,Urine 36.23 mg/dL; Sodium, Urine 35 mmol/L
[2019-06-06 15:18] LABS: CLEAVED CELLS 94 mmol/24h (40-220); Creatinine,24hr Ur 0.94 g/24hr (0.60-1.80); Total Volume 2675 ml
[2019-06-07 17:25] LABS: Citrate Excretion, 24hr, U 920 mg/24 h; Urine Volume 2675 mL
[2019-06-09 11:48] LABS: Oxalate Conc (mmol/L) 0.12 mmol/L; Oxalate Concentration 10.6 mg/L; Oxalate, U 0.32 mmol/24 h; Oxalate, U 28.2 mg/24 h (9.7 - 40.5); Urine Volume 2675 mL
[2019-06-16 16:24] LABS: Calcium Urine 24 hr 161 mg/24hrs (100-300); Timed Urine Volume 2675 mL; Uric Acid Urine 20.8 mg/dL (See Note); Uric Acid Urine 24hr 556 mg/24hrs (250-750)
[2019-06-16 16:26] LABS: Magnesium 24hr Urine 66.9 mg/24hrs (12.0-192.0); Magnesium Random Urine 2.5 mg/dL (See Note); Timed Urine Volume 2675 mL
== END 2019-06-06 12:05 ==
LOC: LBN 11:45
PROVIDERS: PCP Nurse Practitioner Family; Visit Provider Urology
DX: N20.0 Calculus of kidney (principal)
CPT/HCPCS: 82507; 83735; 81050; 82340; 82570; 83945; 84300; 84560

== ENCOUNTER 2019-06-09 13:30 | Outpatient (REF) | payer MEDICARE, BC, SELFPAY ==
[2019-06-12 00:53] LABS: Source: Passed Stone
== END 2019-06-09 13:50 ==
LOC: LBN 13:30
PROVIDERS: PCP Nurse Practitioner Family; Visit Provider Urology
DX: N20.0 Calculus of kidney (principal)
CPT/HCPCS: 82365

== ENCOUNTER 2020-04-07 10:53 | Outpatient (REF) | payer MEDICARE, BC, SELFPAY ==
[2020-04-07 21:08] LABS: TSH (W/Ref FT4) 1.37 uIU/mL (0.36-3.74)
== END 2020-04-07 11:13 ==
LOC: NCHCN 10:53
PROVIDERS: PCP Nurse Practitioner Family; Visit Provider Nurse Practitioner Family
DX: E04.1 Nontoxic single thyroid nodule (principal)
CPT/HCPCS: 84443

== ENCOUNTER 2020-05-12 12:36 | Outpatient (REF) | payer MEDICARE, BC, SELFPAY ==
[2020-05-12 21:09] LABS: Calculated LDL 128 mg/dL (<100); Cholesterol 215 mg/dL (<200); Glucose 80 mg/dL (74-106); HDL Cholesterol 79 mg/dL (40-60); Triglyceride 42 mg/dL (<150)
== END 2020-05-12 12:56 ==
LOC: NCHCN 12:36
PROVIDERS: PCP Nurse Practitioner Family; Visit Provider Nurse Practitioner Family
DX: Z00.00 Encounter for general adult medical examination without abnormal findings (principal)
CPT/HCPCS: 80061; 82947

== ENCOUNTER 2020-07-06 00:32 | Outpatient (CLI) | payer MEDICARE, BC, SELFPAY ==
--- NOTE | 2020-07-06 06:45 | DI.RAD_ITS ---
EXAM: 2D digital imaging was performed. CLINICAL HISTORY: h/o kidney stone, 1 yr fu,N20.0,BILAT KIDNEY STONES. COMPARISON: CT CT RENAL COLIC WO from 04/10/2019 TECHNIQUE: Supine views of the abdomen performed. FINDINGS: BOWEL GAS PATTERN: Nondistended. CALCIFICATIONS: There are 3 densities projected over the superior pole of the right kidney. The larg est measuring approximately 3 mm. There is a single 2 mm density projected over the upper pole of th e left kidney. These likely reflect nonobstructing stones. No other urinary tract calculi are ident ified. OSSEOUS STRUCTURES: Degenerative changes are seen in the spine. OTHER FINDINGS: There is a moderate amount of stool in the colon. IMPRESSION: 1. Nonobstructive bowel gas pattern. 2. Bilateral nephrolithiasis. DATA REPOSITORY: RADIATION DOSE DELIVERED:
== END 2020-07-06 00:52 ==
PROVIDERS: PCP Nurse Practitioner Family; Visit Provider Urology
DX: N20.0 Calculus of kidney (principal)
CPT/HCPCS: 99213; 74018

== ENCOUNTER 2020-07-07 00:08 | Outpatient (CLI) | payer MEDICARE, BC, SELFPAY ==
--- NOTE | 2020-07-07 | DI.DEXA_ITS ---
EXAM: XR DEXA BONE DENSITY W/WO EYAL CLINICAL HISTORY: SCREENING FOR OSTEOPOROSIS IN POSTMENOPAUSAL WOMAN,Z78.0 TECHNIQUE: Routine DEXA evaluation of the lumbar spine, hip, or forearm. COMPARISON: No exams were available for comparison FINDINGS: Performed on a Hologic unit. Lateral image: No compression fracture evident. Lumbar Spine total T-score: -1.4 Hip total T-score:-2.1 Independent reading at the femoral neck level yields a T-score of -2.4 Forearm total T-score: -0.5 IMPRESSION: Bone mineral density measures in the osteopenia range. Fracture risk is moderate. Note: Any spine fracture indicates 5x risk for subsequent spine fracture and 2x risk for subsequent h ip fracture. World Health Organization criteria for BMD interpretation classify patients: Normal...... T- Score at or above -1.0 Osteopenic... T- Score between -1.0 and -2.5 Osteoporosis... T-Score at or below -2.5
== END 2020-07-07 00:28 ==
PROVIDERS: PCP Nurse Practitioner Family; Visit Provider Nurse Practitioner Family
DX: Z78.0 Asymptomatic menopausal state (principal); M85.89 Other specified disorders of bone density and structure, multiple sites
CPT/HCPCS: 77080

== ENCOUNTER 2021-05-16 11:40 | Outpatient (REF) | payer MEDICARE, BC, SELFPAY ==
[2021-05-16 16:25] LABS: Calculated LDL 143 mg/dL (<100); Cholesterol 228 mg/dL (<200); HDL Cholesterol 72 mg/dL (40-60); Triglyceride 65 mg/dL (<150)
== END 2021-05-16 11:41 | disposition home or self-care (01) ==
LOC: NCHCN 11:40
PROVIDERS: PCP Nurse Practitioner Family; Visit Provider Nurse Practitioner Family
DX: E78.9 Disorder of lipoprotein metabolism, unspecified (principal)
CPT/HCPCS: 80061

== ENCOUNTER 2021-07-08 01:50 | Outpatient (CLI) | payer MEDICARE, BC, SELFPAY ==
--- NOTE | 2021-07-08 09:10 | DI.RAD_ITS ---
Exam(s) XR ABDOMEN FLAT PLATE EXAM: 2D digital imaging was performed. CLINICAL HISTORY: monitor known kidney stones,bilkat,n20.0. COMPARISON: No exams were available for comparison TECHNIQUE: Supine views of the abdomen performed. FINDINGS: BOWEL GAS PATTERN: Nondistended. There is a moderate amount of stool in the colon. CALCIFICATIONS: Bilateral renal stones are present. There appears stable. No other urinary tract ca lculi are identified. OSSEOUS STRUCTURES: Normal for age. OTHER FINDINGS: The visualized lung bases are clear. IMPRESSION: 1. Nonobstructive bowel gas pattern. 2. Bilateral nephrolithiasis. DATA REPOSITORY: RADIATION DOSE DELIVERED:
== END 2021-07-08 02:10 ==
PROVIDERS: PCP Nurse Practitioner Family; Visit Provider Urology
DX: N20.0 Calculus of kidney (principal)
CPT/HCPCS: 99213; 74018

== ENCOUNTER 2022-05-24 15:10 | Outpatient (REF) | payer MEDICARE, SELFPAY ==
[2022-05-24 16:02] LABS: Abs Immature Grans 0.01 10^3/uL (0.0-0.06); Absolute Basophil Count 0.05 10^3/uL (0.0-0.2); Absolute Eosinophil Count 0.29 10^3/uL (0.0-0.7); Absolute Lymphocyte Count 1.59 10^3/uL (1.2-3.4); Absolute Monocyte Count 0.37 10^3/uL (0.1-0.8); Absolute Neutrophil Count 2.64 10^3/uL (1.2-6.7); ESR 26 mm/hr (0-30); Eosinophils % 5.9; HCT 43.2 % (36.0-46.0); HGB 13.6 g/dL (11.2-15.7); Immature Grans % 0.2; Lymphocytes % 32.1; MCH 28.4 pg (27.0-33.0); MCHC 31.5 % (32.0-36.0); MCV 90 fL (80-95); MPV 12.1 fL (8.0-11.0); Monocytes % 7.5; Neutrophils % 53.3; Platelet Count 267 10^3/uL (130-400); RBC 4.79 10^6/uL (3.93-5.22); RDW 13.6 % (11.7-14.6); RDW-SD 45.5 fL; WBC 4.95 10^3/uL (4.4-10.8)
[2022-05-24 16:26] LABS: Hemoglobin A1C 5.8 % (<5.7)
[2022-05-24 16:34] LABS: ALT 25 U/L (14-59); AST 26 U/L (15-37); Alkaline Phosphatase 59 U/L (46-116); Anion Gap 7.5 mmol/L (3-11); BUN 20 mg/dL (7-18); Bilirubin, Total 0.6 mg/dL (0.2-1.0); C-Reactive Protein 0.31 mg/dL (0.0-0.3); CO2 29.5 mmol/L (21.0-32.0); CREATININE 0.8 mg/dL (0.55-1.02); Calcium 9.2 mg/dL (8.5-10.1); Calculated LDL 120 mg/dL (<100); Chloride 106 mmol/L (98-107); Cholesterol 199 mg/dL (<200); Estimated GFR 78.72 (mL/min/1.73m2); Glucose 87 mg/dL (74-106); HDL Cholesterol 68 mg/dL (40-60); Potassium 4.6 mmol/L (3.5-5.1); Sodium 143 mmol/L (136-145); TSH 1.73 uIU/mL (0.36-3.74); Total Protein 7.7 g/dL (6.4-8.2); Triglyceride 59 mg/dL (<150)
[2022-05-24 16:41] LABS: Vitamin D 25 Total 28.7 ng/mL (30-100)
[2022-05-24 16:56] LABS: FREE T4 0.92 ng/dL (0.76-1.46)
[2022-05-25 08:13] LABS: Cyclic Citrullinated Peptide <2.5 U/mL (<5.0)
[2022-05-25 13:35] LABS: ANCA Interpretation Negative (Negative)
[2022-05-25 13:38] LABS: ANA Interpretation Positive (Negative); ANA Titer Pattern 1:320 Homogeneous
== END 2022-05-24 15:11 | disposition home or self-care (01) ==
LOC: NCHCN 15:10
PROVIDERS: PCP Nurse Practitioner Family; Visit Provider Nurse Practitioner Family
DX: E78.9 Disorder of lipoprotein metabolism, unspecified (principal); E04.1 Nontoxic single thyroid nodule; M79.10 Myalgia, unspecified site; R73.9 Hyperglycemia, unspecified; M85.80 Other specified disorders of bone density and structure, unspecified site
CPT/HCPCS: 80053; 80061; 82306; 85652; 86200; 86255; 83036; 84439; 84443; 85025; 86038; 86140

== ENCOUNTER → 2022-07-07 00:21 | Outpatient (CLI) | payer MEDICARE, SELFPAY ==
--- NOTE | 2022-07-07 07:00 | DI.RAD_ITS ---
Exam(s) XR ABDOMEN FLAT PLATE EXAM: XR ABDOMEN FLAT PLATE CLINICAL HISTORY: monitor known bilat kidney stones, n20.0. TECHNIQUE: 2D digital imaging was performed. COMPARISON: CR XR ABDOMEN FLAT PLATE from 07/08/2021 FINDINGS: Two views: Bowel gas pattern is nonspecific the supine position. Small radiopaque calculi again noted over the kidneys. No obvious calculi along the course of ureters. Bowel gas pattern is nonspecific. Regional bones unremarkable. IMPRESSION: DATA REPOSITORY: RADIATION DOSE DELIVERED:
== END ==
PROVIDERS: PCP Nurse Practitioner Family; Visit Provider Urology
DX: N20.0 Calculus of kidney (principal)
CPT/HCPCS: 74018

== ENCOUNTER → 2022-08-15 09:52 | Outpatient (BNVA) | payer MEDICARE, SELFPAY | PROVIDERS: PCP Nurse Practitioner Family; Referring Provider Nurse Practitioner Family; Visit Provider Urology | DX: N20.0 Calculus of kidney (principal) | CPT/HCPCS: 99213 ==

== ENCOUNTER 2023-05-07 20:56 | Outpatient (REF) | payer MEDICARE, SELFPAY ==
[2023-05-07 17:35] LABS: LDL CHOLESTEROL 123 mg/dL (<100)
[2023-05-07 17:43] LABS: Hemoglobin A1C 5.8 % (<5.7)
[2023-05-07 18:08] LABS: C-Reactive Protein 0.24 mg/dL (0.0-0.3)
[2023-05-09 14:08] LABS: ESR (LRH) 22 mm/hr
== END 2023-05-07 20:57 | disposition home or self-care (01) ==
LOC: NCHCN 20:56
PROVIDERS: PCP Nurse Practitioner Family; Visit Provider Nurse Practitioner Family
DX: Z00.00 Encounter for general adult medical examination without abnormal findings (principal); R73.9 Hyperglycemia, unspecified
CPT/HCPCS: 83721; 85652; 83036; 86140

== ENCOUNTER → 2023-08-14 09:47 | Outpatient (BNVA) | payer MEDICARE, SELFPAY | PROVIDERS: PCP Nurse Practitioner Family; Referring Provider Nurse Practitioner Family; Visit Provider Urology | DX: N20.0 Calculus of kidney (principal) | CPT/HCPCS: 76775; 99213 ==

== ENCOUNTER 2023-08-14 10:55 | Outpatient (REF) | payer MEDICARE, SELFPAY ==
[2023-08-18 14:03] LABS: Source: Kidney
== END 2023-08-14 10:56 | disposition home or self-care (01) ==
LOC: LBN 10:55
PROVIDERS: PCP Nurse Practitioner Family; Visit Provider Urology
DX: N20.0 Calculus of kidney (principal)
CPT/HCPCS: 82365

== ENCOUNTER → 2023-09-06 08:31 | Outpatient (BNVA) | payer MEDICARE, SELFPAY | PROVIDERS: PCP Nurse Practitioner Family; Referring Provider Nurse Practitioner Family; Visit Provider Urology | DX: N20.0 Calculus of kidney (principal) | CPT/HCPCS: 99442 ==

== ENCOUNTER 2023-11-20 15:13 | Outpatient (REF) | payer MEDICARE, SELFPAY ==
[2023-11-20 13:18] LABS: Bilirubin Negative (Negative); Blood Negative (Negative); Clarity Clear (Clear); Glucose Negative (Negative); Ketones Negative (Negative); Leukocyte Esterase Trace (Negative); Nitrite Negative (Negative); Urobilinogen 0.2 mg/dL (Up to 0.2); pH 5.5 (5-8)
[2023-11-20 13:58] LABS: Bacteria Moderate HPF (Negative); C & S Indicated? C&S Done As Ordered; Casts Negative LPF (Negative); Crystals Negative HPF (Negative); Epithelial Cells Rare HPF (Negative); Mucus Negative (Negative); RBC 0-2 HPF (0-2)
== END 2023-11-20 15:14 | disposition home or self-care (01) ==
LOC: LBN 15:13
PROVIDERS: PCP Nurse Practitioner Family; Visit Provider Urology
DX: N39.0 Urinary tract infection, site not specified (principal); R30.0 Dysuria; B96.20 Unspecified Escherichia coli [E. coli] as the cause of diseases classified elsewhere
CPT/HCPCS: 87077; 81003; 81015; 87086; 87186

== ENCOUNTER → 2023-11-21 08:49 | Outpatient (BNVA) | payer MEDICARE, SELFPAY | PROVIDERS: PCP Nurse Practitioner Family; Referring Provider Nurse Practitioner Family; Visit Provider Nurse Practitioner Gerontology | DX: N20.0 Calculus of kidney (principal); N39.0 Urinary tract infection, site not specified | CPT/HCPCS: 99442 ==

== ENCOUNTER 2024-05-09 10:41 | Outpatient (REF) | payer MEDICARE, SELFPAY ==
[2024-05-09 16:07] LABS: Abs Immature Grans 0.01 10^3/uL (0.0-0.06); Absolute Basophil Count 0.06 10^3/uL (0.0-0.2); Absolute Eosinophil Count 0.99 10^3/uL (0.0-0.7); Absolute Lymphocyte Count 1.75 10^3/uL (1.2-3.4); Absolute Monocyte Count 0.42 10^3/uL (0.1-0.8); Absolute Neutrophil Count 3.24 10^3/uL (1.2-6.7); Basophils % 0.9 %; Eosinophils % 15.3 %; HCT 41.3 % (36.0-46.0); HGB 13.5 g/dL (11.2-15.7); Immature Grans % 0.2 %; MCH 29.3 pg (27.0-33.0); MCHC 32.7 % (32.0-36.0); MCV 90 fL (80-95); MPV 11.5 fL (8.0-11.0); Monocytes % 6.5 %; Neutrophils % 50.1 %; Platelet Count 273 10^3/uL (130-400); RBC 4.61 10^6/uL (3.93-5.22); RDW-SD 45.6 fL; WBC 6.47 10^3/uL (4.4-10.8)
[2024-05-09 16:38] LABS: Hemoglobin A1C 5.6 % (<5.7)
[2024-05-09 16:41] LABS: ALT 23 U/L (14-59); AST 25 U/L (15-37); Albumin 3.9 g/dL (3.4-5.0); Alkaline Phosphatase 67 U/L (46-116); Anion Gap 8.5 mmol/L (3-11); BUN 19 mg/dL (7-18); Bilirubin, Total 0.56 mg/dL (0.2-1.0); CO2 27.5 mmol/L (21.0-32.0); CREATININE 0.8 mg/dL (0.55-1.02); Calcium 9.3 mg/dL (8.5-10.1); Calculated LDL 128 mg/dL (<100); Chloride 106 mmol/L (98-107); Cholesterol 214 mg/dL (<200); Estimated GFR 77.75 (mL/min/1.73m2); FREE T4 0.82 ng/dL (0.76-1.46); Glucose 92 mg/dL (74-106); HDL Cholesterol 78 mg/dL (40-60); Potassium 5.2 mmol/L (3.5-5.1); Sodium 142 mmol/L (136-145); TSH 1.14 uIU/mL (0.36-3.74); Total Protein 7.4 g/dL (6.4-8.2); Triglyceride 41 mg/dL (<150); Vitamin D 25 Total 50.4 ng/mL (30-100)
== END 2024-05-09 10:42 | disposition home or self-care (01) ==
LOC: NCHCN 10:41
PROVIDERS: PCP Nurse Practitioner Family; Visit Provider Nurse Practitioner Family
DX: E78.9 Disorder of lipoprotein metabolism, unspecified (principal); R73.03 Prediabetes; E04.1 Nontoxic single thyroid nodule; M85.80 Other specified disorders of bone density and structure, unspecified site
CPT/HCPCS: 80053; 80061; 82306; 83036; 84439; 84443; 85025

== ENCOUNTER → 2024-08-12 14:15 | Outpatient (BNVA) | payer MEDICARE, SELFPAY | PROVIDERS: PCP Nurse Practitioner Family; Referring Provider Nurse Practitioner Family; Visit Provider Urology | DX: N20.0 Calculus of kidney (principal) | CPT/HCPCS: 76775; 99214 ==

== ENCOUNTER 2025-02-05 21:38 | Outpatient (REF) | payer MEDICARE, SELFPAY ==
[2025-02-05 22:13] LABS: Anion Gap 7.2 mmol/L (3-11); BUN 15 mg/dL (7-18); CO2 28.8 mmol/L (21.0-32.0); Calcium 9.6 mg/dL (8.5-10.1); Calculated LDL 119 mg/dL (<100); Chloride 104 mmol/L (98-107); Cholesterol 211 mg/dL (<200); Estimated GFR 98.97 (mL/min/1.73m2); Glucose 85 mg/dL (74-106); HDL Cholesterol 78 mg/dL (>or=50); Potassium 4.4 mmol/L (3.5-5.1); Sodium 140 mmol/L (136-145); Triglyceride 72 mg/dL (<150)
[2025-02-05 22:24] LABS: Hemoglobin A1C 5.6 % (<5.7)
== END 2025-02-05 21:39 | disposition home or self-care (01) ==
LOC: NCHCN 21:38
PROVIDERS: PCP Nurse Practitioner Family; Visit Provider Nurse Practitioner Family
DX: Z00.00 Encounter for general adult medical examination without abnormal findings (principal)
CPT/HCPCS: 80048; 80061; 83036